=== PATIENT | male | born 1950 | race Caucasian/White ===

== ENCOUNTER 2021-09-15 09:40 | Emergency (ER) | payer MEDICARE, SELFPAY ==
[2021-09-15] VITALS (15 sets, daily range): BP systolic 102–136; BP diastolic 68–91; PULSE 65–80; RESP 13–29; TEMP 35.9; O2SAT 93–100
--- NOTE | 2021-09-15 10:02 | ED.RECABL ---
HPI - Recheck/Abnormal Lab/Rx General Chief Complaint: Recheck/Abnormal Lab/Rx Stated Complaint: elevated blood sugar - no hx of DM Time Seen by Provider: 09/15/21 09:52 History of Present Illness HPI narrative: Patient is a 71-year-old male here with his for evaluation of elevated blood glucose at his [facility] care facility. Per patient's , he had routine lab work done last week and his blood glucose was found to be 350. His fingersticks today have been in the 300s, so he was sent here for evaluation. Patient has no history of diabetes. Patient is currently on his baseline and denies any symptoms recently, including abdominal pain, nausea, vomiting, confusion, weakness. Does report about a 30 pound weight gain over the last year, but has no other symptoms. Related Data Allergies Allergy/AdvReac Type Severity Reaction Status Date / Time No Known Allergies Allergy Verified 09/15/21 10:04 Review of Systems Review of Systems: Gen.: Reports weight gain. Eyes: Denies eye pain or visual change ENT: Denies congestion Respiratory: Denies shortness of breath or cough CV: Denies chest pain or palpitations GI: Denies abdominal pain nausea, emesis or diarrhea denies burning, urgency, frequency or hematuria Musculoskeletal: Denies back pain or muscle pain Neuro: Denies numbness, tingling, weakness or focal weakness Skin: Denies rash Except as documented, all other systems reviewed and negative [facility] Social History Social History Smoking status: Never smoker Alcohol intake: never Exam Narrative: APPEARANCE: No acute distress, nontoxic, resting in bed EYES: EOMI HEENT: Normocephalic, atraumatic, OMM RESPIRATORY: No respiratory distress Clear to auscultation bilaterally with no rhonchi wheezing or rales. CARDIOVASCULAR: Regular rate and rhythm without murmurs rubs or gallops. ABDOMINAL: Soft, nontender, nondistended, no rebound or guarding MUSCULOSKELETAL: Moves all extremities. No clubbing, cyanosis or edema. NEURO: Awake and alert. Following commands, speech normal, no focal deficits SKIN: Warm, dry. No rashes lesions or abrasions PSYCHIATRIC: Normal affect/mood Course Vital Signs Vital signs: Vital Signs Temperature 96.7 F L 09/15/21 09:44 Pulse Rate 70 09/15/21 09:44 Respiratory Rate 18 09/15/21 09:44 Blood Pressure 132/80 09/15/21 09:44 Pulse Oximetry 97 09/15/21 09:44 Oxygen Delivery Room Air 09/15/21 09:44 Temperature 96.7 F L 09/15/21 09:44 Pulse Rate 66 09/15/21 12:00 Respiratory Rate 18 09/15/21 12:00 Blood Pressure 136/91 H 09/15/21 11:48 Pulse Oximetry 98 09/15/21 12:00 Oxygen Delivery Room Air 09/15/21 09:44 MDM - Recheck/Abnormal Lab/Rx MDM Narrative Medical decision making narrative: 71-year-old male here for evaluation of elevated glucose at his [facility] facility. Vital signs normal, fingerstick 337. Patient has no signs of diabetic ketoacidosis, as he has no ketones in his urine, his beta hydroxybutyrate was negative, he has no anion gap and has a normal bicarb. Glucose is not high enough to suggest hyperglycemic hyperosmolar syndrome, and patient is asymptomatic. Discussed findings with patient's primary care ECONOMICS CONSULTANT at the [facility] facility, will start patient on metformin. Discussed return precautions with patient and his , who both voiced understanding. Lab Data Result diagrams: 09/15/21 10:05 09/15/21 10:05 Labs: Lab Results 09/15/21 09/15/21 09/15/21 Range/Units 09:59 10:05 10:05 WBC 5.6 (4.5-10.0) K/mm3 RBC 4.80 (4.6-6.20) M/mm3 Hgb 14.6 (14.0-18.0) g/dL Hct 43.1 (42.0-52.0) % MCV 89.8 (80-100) fl MCH 30.4 (26-34) pg MCHC 33.9 (32-36) g/dl RDW 11.9 (11.5-14.5) % Plt Count 177 (150-375) k/mm3 MPV 12.5 H (7.4-10.4) fl Immature Gran % (Auto) 0.2 (0-0.5) % Neut % (Auto) 55.8 (45.5-73.1) % Lymph % (Auto) 29.9 (18.3-44.2) % [place] %
[2021-09-15 10:07] LABS: Glucose Point of Care 337 mg/dl (65-105)
[2021-09-15 10:36] LABS: Basophils Absolute Auto 0.1 K/mm3 (0.0-0.1); Basophils Percent Auto 1.4 % (0.2-1.2); Eosinophils Absolute Auto 0.3 K/mm3 (0-0.3); Eosinophils Percent Auto 6.1 % (0-4.4); Hematocrit 43.1 % (42.0-52.0); Hemoglobin 14.6 g/dL (14.0-18.0); Immature Granulocyte Absolute 0.01 K/mm3 (0.00-0.031); Immature Granulocyte Percent A 0.2 % (0-0.5); Lymphocytes Absolute Auto 1.68 K/mm3 (0.9-3.2); Lymphocytes Percent Auto 29.9 % (18.3-44.2); Mean Corpuscular HGB Conc 33.9 g/dl (32-36); Mean Corpuscular Hemoglobin 30.4 pg (26-34); Mean Corpuscular Volume 89.8 fl (80-100); Mean Platelet Volume 12.5 fl (7.4-10.4); Monocytes Absolute Auto 0.4 K/mm3 (0.1-0.6); Monocytes Percent Auto 6.6 % (2.6-8.5); Neutrophils Absolute Auto 3.1 K/mm3 (1.3-6.7); Neutrophils Percent Auto 55.8 % (45.5-73.1); Platelet Count Result 177 k/mm3 (150-375); Red Cell Distribution Width 11.9 % (11.5-14.5); White Blood Count 5.6 K/mm3 (4.5-10.0)
[2021-09-15 10:49] LABS: Beta-Hydroxybutyrate/Acetoacetate 0.12 mmol/L (0.02-0.27)
[2021-09-15 10:52] LABS: Alanine Aminotransferase 30 U/L (6-50); Albumin Level 3.9 g/dL (3.5-5.1); Alkaline Phosphatase 58 U/L (38-126); Anion Gap 7 mmol/L (8-16); Aspartate Amino Transferase 40 U/L (17-59); Blood Urea Nitrogen 14 mg/dL (9-20); Calcium 8.5 mg/dL (8.4-10.2); Carbon Dioxide 23 mmol/L (22-30); Chloride 104 mmol/L (98-107); Estimated CRCL calculation 103 ml/min; Estimated Glomerular Filt Rate > 60; Glucose 308 mg/dL (65-110); Potassium 4.3 mmol/L (3.4-5.0); Sodium 134 mmol/L (137-145)
[2021-09-15 11:35] LABS: Add Urine Microscopic? YES; Appearance Urine Clear (Clear); Bilirubin Urine Negative (Negative); Blood Urine Negative (Negative); Color Urine Yellow (Yellow); Glucose Urine UA 2+ mg/dL (Negative); Ketones Urine Negative (Negative); Leukocyte Esterase Ur Negative LEU/UL (Negative); Nitrate Urine Negative (Negative); Protein Urine Negative (Negative); Specific Grav Ur >= 1.030 (1.001-1.035); pH Urine 5.5 (5.0-9.0)
[2021-09-15 11:38] LABS: Mucus Urine Rare /lpf; RBC Urine 0-2 /hpf (0-2); WBC Urine 0-3 /hpf
== END 2021-09-15 12:30 ==
PROVIDERS: Physician Assistant; Emergency Provider Emergency Medicine
DX: R73.9 Hyperglycemia, unspecified (principal)
CPT/HCPCS: 36415; 80053; 81001; 82010; 82948; 85025; 99283